=== PATIENT | male | born 1950 | race Caucasian/White ===

== ENCOUNTER → 2017-04-15 | Outpatient (CLI) | payer MEDICARE, BC | END | disposition home or self-care (01) | LOC: GMAB 10:33 | PROVIDERS: ATTEND Family Medicine | DX: Z12.5 Encounter for screening for malignant neoplasm of prostate (principal); I10 Essential (primary) hypertension | CPT/HCPCS: 84443; G0103 ==

== ENCOUNTER → 2017-05-13 | Outpatient (CLI) | payer MEDICARE, BC ==
--- NOTE | 2017-05-14 14:23 | US ---
EXAM DESCRIPTION: Renal two-dimensional ultrasound. CLINICAL HISTORY: RENAL INSUFFICIENCY COMPARISON: None. TECHNIQUE: Transcutaneous scanning: Two-dimensional and Doppler modes. FINDINGS: Right kidney measures 10.5 x 5.9 x 5.3 cm; mid-renal cortical thickness 1.9 cm. .echogenicity. No hydronephrosis No calcifications. Smooth contour of the kidney with no perinephric fluid. Proximal ureter not visualized. Left kidney measures 12.5 x 6.2 x 5.1 cm; mid-renal cortical thickness 1.6 cm. echogenicity. No hydronephrosis. No calcifications. Not contour of the kidney with no perinephric fluid. Proximal ureter not visualized. Urinary bladder not visualized. Abdominal aorta diameter not measured. IMPRESSION: Normal ultrasound of the bilateral kidneys. Consider Doppler evaluation of the bilateral renal arterial systems. Electronically signed by: Nato Burrell MD 05/14/2017 2:21 PM CDT Workstation: [id number]
== END | disposition home or self-care (01) ==
LOC: US 11:14
PROVIDERS: ATTEND Family Medicine
DX: R94.4 Abnormal results of kidney function studies (principal)

== ENCOUNTER → 2017-05-19 | Outpatient (CLI) | payer MEDICARE, BC | LOC: GMAB 09:09 | PROVIDERS: ATTEND Family Medicine | DX: N18.4 Chronic kidney disease, stage 4 (severe) (principal) ==

== ENCOUNTER 2017-08-10 10:14 | Emergency (ER) | payer MEDICARE, BC ==
[2017-08-10] MEDS ORDERED: TETRACAINE HCL 0.5% OPHTH SOL 1 DROP OPHTH ONE (10:15)
[2017-08-10 10:26] VITALS: TEMP 97.4
--- NOTE | 2017-08-10 10:31 | ED.PDOC ---
History of Present Illness - General Chief Complaint: Laceration Stated Complaint: fall Time Seen by Provider: 08/10/17 10:30 Source: patient, Vital Signs reviewed - History of Present Illness Initial Comments: Pedro Zapien 67 y/o male stated that he was loading bale of stratton then slipped and fell face down to the ground landing on a piece of wooden 2 x 2 laying on the floor sustaining laceration on right cheek and burning pain inside right eye.Denies LOC,remembers incident no neck pain,no double vision Timing/Duration: just prior to arrival Severity: moderate Location: face Improving Factors: nothing Worsening Factors: nothing Associated Symptoms: denies symptoms Allergies/Adverse Reactions: Allergies Atorvastatin [From Lipitor] Allergy (Verified 08/10/17 10:25) Penicillins Allergy (Verified 08/10/17 10:25) Home Medications: Ambulatory Orders Allopurinol [Zyloprim] 300 mg PO DAILY 10/11/14 Aspirin [Baby Aspirin] 81 mg PO DAILY 10/11/14 Clonazepam 2 mg PO DAILY 10/11/14 Duloxetine HCl [Cymbalta] 60 mg PO BID 10/11/14 Fenofibric Acid [Trilipix] 135 mg PO DAILY 10/11/14 Nabumetone 750 mg PO BID 10/11/14 Oxcarbazepine 600 mg PO BID 10/11/14 Pantoprazole Sodium 40 mg PO DAILY 10/11/14 Pregabalin [Lyrica] 150 mg PO BID 10/11/14 Quinapril HCl 40 mg PO DAILY 10/11/14 l-Methylfolate W/ Algae-Vitami [Metanx 3-90.314-2-35 mg] 1 cap PO DAILY Morphine Sulfate [Ms Contin] 60 mg PO BID 11/01/15 Naproxen 375 mg PO BID #10 tab 11/01/15 Azithromycin [Zithromax Z-Sung] 1 ea PO DAILY #1 pack 08/10/17 Review of Systems - Review of Systems Constitutional: States: no symptoms reported EENTM: States: no symptoms reported Respiratory: States: no symptoms reported Cardiology: States: no symptoms reported Genitourinary: States: no symptoms reported Musculoskeletal: States: no symptoms reported Skin: States: see HPI Neurological: States: no symptoms reported Past Medical History (General) - Patient Medical History Hx Stroke: Yes - 2001 Hx Cardiac Disorders: - hx scarlet fever Hx Congestive Heart Failure: No Hx Hypertension: Yes Hx Diabetes: No Hx Other PMH: Yes - neuropathy Surgical History: cholecystectomy, tonsillectomy, other - Vaccination History Hx Tetanus, Diphtheria Vaccination: No Hx Influenza Vaccination: No Hx Pneumococcal Vaccination: Yes - Social History Hx Tobacco Use: No Hx Chewing Tobacco Use: Yes Hx Alcohol Use: No Hx Substance Use: No Hx Substance Use Treatment: No Hx Depression: No Family Medical History - Family History Father Living Status: Age at (years of age): 89 Cause of : [place] Hx Family Hypertension: Yes Hx Family Cancer: Yes - skin Physical Exam - Physical Exam General Appearance: Alert, Comfortable, No apparent distress Eyes, Ears, Nose, Throat Exam: PERRL/EOMI, normal ENT inspection, TMs normal, other - right eye-no foreign body noted,conjuntival culde sac clear-negative fluorecein uptake Neck: non-tender, full range of motion, supple Cardiovascular/Chest: normal peripheral pulses, regular rate, rhythm, no murmur Respiratory: lungs clear, no respiratory distress Gastrointestinal/Abdominal: non tender, soft Back Exam: normal inspection Extremity: non-tender, no calf tenderness Neurologic: alert, normal mood/affect, oriented x 3 Skin Exam: warm/dry, normal color Skin Problem Location: face, other - laceration right cheek Progress - Progress Progress: 08/10/17 11:46 Vital Signs - 8 hr 08/10/17 08/10/17 10:14 11:40 Temperature 97.4 F L Pulse Rate [ 80 60 pulse ox] Respiratory 16 16 Rate Blood Pressure 120/78 104/69 [Right Arm] O2 Sat by Pulse 97 95 Oximetry Procedures - Laceration/Wound Repair Right Cheek Wound Length (cm): 4 - SQ layer Wound Explored: foreign body removed - small pieces of leaves Irrigated w/ Saline (cc's): 100 Betadine Prep?: No - hibiclens Volume Anesthetic (cc's): 10 Wound Repaired With: sutures Suture Size/Type: 5:0, nylon Layer Closure?: Yes Deep Layer Suture Size/Type: 5:0, vicryl rapide Number Deep Layer Sutures: 3 Sterile Dressing Applied?: Yes Departure - Departure Clinical Impression: Pain, eye, right Fall Qualifiers: Encounter type: initial encounter Qualified Code(s): W19.XXXA - Unspecified fall, initial encounter Laceration of cheek with foreign body Qualifiers: Encounter type: initial encounter Laterality: right Qualified Code(s): S01.421A - Laceration with foreign body of right cheek and temporomandibular area, initial encounter Time of Disposition: 11:51 Disposition: Discharge to Home or Self Care Condition: Good Departure Forms: ED Discharge - Pt. Copy, Patient Portal Self Enrollment Instructions: How to Care for a Laceration After Repair, DI for Laceration Repair -- Complex Suture Referrals: Josh Olivo MD [Primary Care Provider] - 1-2 Weeks Prescriptions: Azithromycin [Zithromax Z-Sung] 1 ea PO DAILY #1 pack Home Medications: Ambulatory Orders Allopurinol [Zyloprim] 300 mg PO DAILY 10/11/14 Aspirin [Baby Aspirin] 81 mg PO DAILY 10/11/14 Clonazepam 2 mg PO DAILY 10/11/14 Duloxetine HCl [Cymbalta] 60 mg PO BID 10/11/14 Fenofibric Acid [Trilipix] 135 mg PO DAILY 10/11/14 Nabumetone 750 mg PO BID 10/11/14 Oxcarbazepine 600 mg PO BID 10/11/14 Pantoprazole Sodium 40 mg PO DAILY 10/11/14 Pregabalin [Lyrica] 150 mg PO BID 10/11/14 Quinapril HCl 40 mg PO DAILY 10/11/14 l-Methylfolate W/ Algae-Vitami [Metanx 3-90.314-2-35 mg] 1 cap PO DAILY Morphine Sulfate [Ms Contin] 60 mg PO BID 11/01/15 Naproxen 375 mg PO BID #10 tab 11/01/15 Azithromycin [Zithromax Z-Sung] 1 ea PO DAILY #1 pack 08/10/17 Additional Instructions: REMOVAL OF SUTURES 08/16/2017 -[facility];Return to emergency room as needed
[2017-08-10] MEDS ORDERED: CHLORHEXIDINE GLUCONATE 4 % 15 ML UD TOP ONE (10:43)
[2017-08-10] MEDS ORDERED: LIDOCAINE 1% W/ EPINEPHRINE 20 ML VIAL INJ ONE (10:43)
[2017-08-10] MEDS ORDERED: NEOMYCIN-BACITRACIN-POLYMYXIN 0.9 GM UD TOP ONE (11:22)
[2017-08-10 11:42] VITALS: O2SAT 95
[2017-08-10] MEDS ORDERED: TETANUS,DIPHTHERIA,PERTUSSIS 1 EA SYG IM ONE (11:43)
[2017-08-10 12:07] VITALS: BP 94/62
== END 2017-08-10 12:07 | disposition home or self-care (01) ==
LOC: ER 10:14
DX: S01.421A Laceration with foreign body of right cheek and temporomandibular area, initial encounter (principal); I10 Essential (primary) hypertension; Z79.82 Long term (current) use of aspirin; Z79.899 Other long term (current) drug therapy; Z86.73 Personal history of transient ischemic attack (TIA), and cerebral infarction without residual deficits; Z23 Encounter for immunization; W19.XXXA Unspecified fall, initial encounter; Y92.9 Unspecified place or not applicable

== ENCOUNTER → 2017-10-15 | Outpatient (CLI) | payer MEDICARE, BC | END | disposition home or self-care (01) | LOC: GMAB 12:10 | PROVIDERS: ATTEND Family Medicine | DX: N18.4 Chronic kidney disease, stage 4 (severe) (principal) ==

== ENCOUNTER 2018-02-23 09:07 | Emergency (ER) | payer MEDICARE, BC ==
--- NOTE | 2018-02-23 09:09 | RAD ---
EXAM DESCRIPTION: Hand,Left 3 Views CLINICAL HISTORY: HAND PAIN COMPARISON: None Available. TECHNIQUE: AP, LATERAL, AND OBLIQUE FINDINGS: Three-view left hand shows no fracture or dislocation. There is no bone lesion. Degenerative narrowing of the DIP and PIP joints. Mild degenerative narrowing of the interphalangeal joint of thumb and first and second metacarpophalangeal joints. Advanced degenerative osteoarthrosis of the lateral carpus is seen especially first carpal metacarpal joint. There is no radiopaque foreign body. 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 Electronically signed by: Pj Palomaers MD 02/23/2018 9:08 AM CDT
--- NOTE | 2018-02-23 09:11 | RAD ---
EXAM DESCRIPTION: Hand,Right 3 Views CLINICAL HISTORY: HAND PAIN COMPARISON: None Available. TECHNIQUE: AP, LATERAL, AND OBLIQUE FINDINGS: Three-view right hand shows no fracture or dislocation. There is no bone lesion. Advanced osteoarthrosis of the lateral carpus is seen with mild narrowing of the radiocarpal joint. Degenerative narrowing of the first through third metacarpal phalangeal joints is seen. There is narrowing of the DIP joints and interphalangeal joint of the thumb. Findings are consistent with chronic osteoarthrosis. There is preservation of bony mineralization. IMPRESSION: Chronic osteoarthrosis of the right hand and wrist. Electronically signed by: Pj Palomares MD 02/23/2018 9:10 AM CDT
[2018-02-23 09:22] VITALS: TEMP 97.7
[2018-02-23] MEDS ORDERED: LIDOCAINE 1% W/ EPINEPHRINE 20 ML VIAL INJ ONE (09:26)
[2018-02-23] MEDS ORDERED: CHLORHEXIDINE GLUCONATE 4 % 15 ML UD TOP ONE (09:31)
--- NOTE | 2018-02-23 09:55 | ED.PDOC ---
History of Present Illness - General Chief Complaint: Laceration Stated Complaint: laceration Time Seen by Provider: 02/23/18 09:44 Source: patient, family Exam Limitations: no limitations Additional Information: PT SLIPPED AND FELL SUSTAINING LACERATION TO HEAD. NO LOC, NO NECK PAIN. 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: mild Improving Factors: nothing Worsening Factors: nothing Associated Symptoms: denies symptoms Allergies/Adverse Reactions: Allergies Atorvastatin [From Lipitor] Allergy (Verified 02/23/18 09:22) Penicillins Allergy (Verified 02/23/18 09:22) Home Medications: Ambulatory Orders Allopurinol [Zyloprim] 300 mg PO DAILY 10/11/14 Aspirin [Baby Aspirin] 81 mg PO DAILY 10/11/14 Clonazepam 2 mg PO DAILY 10/11/14 Duloxetine HCl [Cymbalta] 60 mg PO BID 10/11/14 Fenofibric Acid [Trilipix] 135 mg PO DAILY 10/11/14 Nabumetone 750 mg PO BID 10/11/14 Oxcarbazepine 600 mg PO BID 10/11/14 Pantoprazole Sodium 40 mg PO DAILY 10/11/14 Pregabalin [Lyrica] 150 mg PO BID 10/11/14 Quinapril HCl 40 mg PO DAILY 10/11/14 l-Methylfolate W/ Algae-Vitami [Metanx 3-90.314-2-35 mg] 1 cap PO DAILY Morphine Sulfate [Ms Contin] 60 mg PO BID 11/01/15 Naproxen 375 mg PO BID #10 tab 11/01/15 Azithromycin [Zithromax Z-Sung] 1 ea PO DAILY #1 pack 08/10/17 Review of Systems - Review of Systems Constitutional: Denies: chills, fever EENTM: States: other - LACERATION SCALP. Denies: double vision Respiratory: States: no symptoms reported Cardiology: States: no symptoms reported Gastrointestinal/Abdominal: Denies: nausea, vomiting Genitourinary: States: no symptoms reported Musculoskeletal: States: other - PAIN L SHOULDER. . Denies: back pain, neck pain Skin: States: other - LACERATION Neurological: Denies: numbness, tingling, weakness Endocrine: States: no symptoms reported Hematologic/Lymphatic: States: no symptoms reported Past Medical History (General) - Patient Medical History Hx Stroke: Yes - 2001 Hx Cardiac Disorders: - hx scarlet fever Hx Congestive Heart Failure: No Hx Hypertension: Yes Hx Diabetes: No Hx Gastroesophageal Reflux: Yes Surgical History: other - Vaccination History Hx Tetanus, Diphtheria Vaccination: No Hx Influenza Vaccination: No Hx Pneumococcal Vaccination: Yes - Social History Hx Tobacco Use: No Hx Chewing Tobacco Use: Yes Hx Alcohol Use: No Hx Substance Use: No Hx Substance Use Treatment: No Hx Depression: No Family Medical History - Family History Father Living Status: Age at (years of age): 89 Cause of : [place] Hx Family Hypertension: Yes Hx Family Cancer: Yes - skin Physical Exam - Physical Exam General Appearance: No apparent distress, Well Developed, Well Nourished Eye Exam: bilateral normal Ears, Nose, Throat: hearing grossly normal, other - LACERATION SCALP O/W NL. Neck: non-tender, full range of motion, supple, normal inspection Respiratory: lungs clear, normal breath sounds Cardiovascular/Chest: regular rate, rhythm, no murmur Gastrointestinal/Abdominal: non tender, soft, no organomegaly Back Exam: normal inspection, no CVA tenderness Extremity: normal range of motion, non-tender, normal inspection Neurologic: no motor/sensory deficits, normal mood/affect, other - NO TREMOR Skin Exam: normal color, warm/dry, other - LACERATION NOTED ABOVE. Lymphatic: no adenopathy Progress - Progress Progress: 02/23/18 11:06 FEELS WELL - EKG/XRAY/CT XRAY: SHOULDER: CHARLA Procedures - Laceration/Wound Repair Left Occipital Wound Length (cm): 3.0 Wound's Depth, Shape: linear Wound Explored: no foreign body removed Anesthesia: Lidocaine w/ Epi Wound Repaired With: beronica Layer Closure?: No Departure - Departure Clinical Impression: Parkinson disease Laceration of scalp Qualifiers: Encounter type: initial encounter Qualified Code(s): S01.01XA - Laceration without foreign body of scalp, initial encounter Time of Disposition: 11:08 Disposition: Discharge to Home or Self Care Condition: Good Departure Forms: ED Discharge - Pt. Copy, Patient Portal Self Enrollment Instructions: DI for Laceration Repair, DI for Laceration Repair -- [place] Referrals: Josh Olivo MD [Primary Care Provider] - 1-2 Weeks Home Medications: Ambulatory Orders Allopurinol [Zyloprim] 300 mg PO DAILY 10/11/14 Aspirin [Baby Aspirin] 81 mg PO DAILY 10/11/14 Clonazepam 2 mg PO DAILY 10/11/14 Duloxetine HCl [Cymbalta] 60 mg PO BID 10/11/14 Fenofibric Acid [Trilipix] 135 mg PO DAILY 10/11/14 Nabumetone 750 mg PO BID 10/11/14 Oxcarbazepine 600 mg PO BID 10/11/14 Pantoprazole Sodium 40 mg PO DAILY 10/11/14 Pregabalin [Lyrica] 150 mg PO BID 10/11/14 Quinapril HCl 40 mg PO DAILY 10/11/14 l-Methylfolate W/ Algae-Vitami [Metanx 3-90.314-2-35 mg] 1 cap PO DAILY Morphine Sulfate [Ms Contin] 60 mg PO BID 11/01/15 Naproxen 375 mg PO BID #10 tab 11/01/15 Azithromycin [Zithromax Z-Sugn] 1 ea PO DAILY #1 pack 08/10/17
--- NOTE | 2018-02-23 10:18 | RAD ---
EXAM DESCRIPTION: Shoulder,Left 2 or More Views CLINICAL HISTORY: FALL WITH PAIN COMPARISON: None. TECHNIQUE: 2 views left FINDINGS: I see no bone joint or soft tissue abnormality. IMPRESSION: Normal left shoulder for age. No evidence of fracture or dislocation is seen. Electronically signed by: Aquilino Coppola MD 02/23/2018 10:16 AM CDT
--- NOTE | 2018-02-23 10:48 | CT ---
EXAM DESCRIPTION: Cervical Spine CLINICAL HISTORY: FALL WITH PAIN COMPARISON: 01 November 2015 TECHNIQUE: Cervical CT is performed with thin-section axial imaging. MPRs are created and reviewed as well.This exam was performed according to our departmental dose-optimization program, which includes automated exposure control, adjustment of the mA and/or kV according to patient size and/or use of iterative reconstruction technique. FINDINGS: The cervical vertebral bodies are in good AP alignment. No fracturing is detected. No soft tissue swelling is observed. Loss of disc height is observed at the C5-6 and C6-7 levels unchanged from the previous exam. Left neural foraminal disease narrowing is observed at the C3-4 level as result of facet joint and uncovertebral joint arthritis. Bilateral neural foraminal narrowing is observed at the C4-5 level. Posterior disc osteophyte complex is seen at the C5-6 level and there is some left neural foraminal narrowing. Posterior disc osteophyte is also observed at the C6-7 level with bilateral neural foraminal narrowing. IMPRESSION: Degenerative changes are observed most pronounced at the C5-6 and C6-7 levels. No interval changes observed in the prior exam. No acute injury is detected. Electronically signed by: Aquilino Coppola MD 02/23/2018 10:46 AM CDT
--- NOTE | 2018-02-23 10:51 | CT ---
EXAM DESCRIPTION: Head CLINICAL HISTORY: FALL WITH HEAD LAC COMPARISON: None available TECHNIQUE: Non contrast cranial CT.This exam was performed according to our departmental dose-optimization program, which includes automated exposure control, adjustment of the mA and/or kV according to patient size and/or use of iterative reconstruction technique. FINDINGS: Ventricles and sulci are unremarkable. There is no hemorrhage or mass. There are no white matter abnormalities detected. The calvarium is unremarkable. The visualized paranasal sinuses and the mastoids are clear. Skin beronica are observed in the scalp laceration in the left frontal region IMPRESSION: No intra-axial abnormality is detected. Electronically signed by: Aquilino Coppola MD 02/23/2018 10:49 AM CDT
[2018-02-23 11:22] VITALS: BP 109/75; O2SAT 98
== END 2018-02-23 11:15 | disposition home or self-care (01) ==
LOC: ER 09:07
DX: S01.01XA Laceration without foreign body of scalp, initial encounter (principal); G20 Parkinson's disease; I10 Essential (primary) hypertension; F17.220 Nicotine dependence, chewing tobacco, uncomplicated; W19.XXXA Unspecified fall, initial encounter; Y92.9 Unspecified place or not applicable

== ENCOUNTER → 2018-03-13 | Outpatient (CLI) | payer MEDICARE, BC | LOC: LAB.O 09:13 | PROVIDERS: ATTEND Internal Medicine Nephrology | DX: N18.4 Chronic kidney disease, stage 4 (severe) (principal) ==

== ENCOUNTER 2018-03-18 05:38 | Day surgery (SDC) | payer MEDICARE, BC ==
[2018-03-18] MEDS ORDERED: LACTATED RINGERS 1,000 ML ONE (05:55)
[2018-03-18] MEDS ORDERED: SODIUM CHL 0.9% 100ML MINI-BAG 100 ML IVPB ONE (05:55)
[2018-03-18] MEDS ORDERED: ceFAZolin SODIUM 1 GM VIAL ONE ×2 (05:55→06:44)
[2018-03-18] MEDS ORDERED: MIDAZOLAM INJ 2 MG/2 ML VIAL ONE (06:28)
[2018-03-18] MEDS ORDERED: fentaNYL CITRATE INJ 50 MCG/ML AMP ONE (06:28)
[2018-03-18] MEDS ORDERED: BUPIVACAINE 0.25% W/EPI 50 ML VIAL INJ ONE (06:44)
[2018-03-18] MEDS ORDERED: LIDOCAINE 1% W/ EPINEPHRINE 20 ML VIAL INJ ONE (06:44)
[2018-03-18] MEDS ORDERED: VANCOMYCIN HCL INJ 1,000 MG VIAL IVPB ONE (06:44)
[2018-03-18] MEDS ORDERED: LIDOCAINE 1% 10 ML VIAL INJ ONE ×2 (06:48→10:00)
[2018-03-18] MEDS ORDERED: BUPIVACAINE 0.25% INJ 30 ML VIAL INJ ONE (06:48)
[2018-03-18] MEDS ORDERED: ACETAMINOPHEN IV 1000MG 100 ML ONE (07:46)
[2018-03-18] MEDS ORDERED: ePHEDrine SULF 50 MG/ML IV ONE (10:00)
[2018-03-18] MEDS ORDERED: DEXAMETHASONE INJ 10 MG/ML VIAL IV ONE (10:00)
[2018-03-18] MEDS ORDERED: raNITIdine HCL INJ 25 MG/ML VIAL IV ONE (10:00)
[2018-03-18] MEDS ORDERED: PROPOFOL 200 MG/20 ML VIAL IV ONE (10:00)
[2018-03-18] MEDS ORDERED: GLYCOPYRROLATE 0.2 MG/ML VIAL IV ONE (10:00)
[2018-03-18] MEDS ORDERED: METOCLOPRAMIDE HCL INJ 10 MG/2 ML VIAL IV ONE (10:00)
[2018-03-18 10:26] VITALS: O2SAT 98
[2018-03-18 11:13] VITALS: BP 120/76; TEMP 97.3
--- NOTE | 2018-03-18 11:21 | OP ---
DATE OF PROCEDURE: 03/18/18 PREOPERATIVE DIAGNOSIS: 1. Carpal tunnel syndrome. 2. Cubital tunnel syndrome. POSTOPERATIVE DIAGNOSIS: 1. Carpal tunnel syndrome. 2. Cubital tunnel syndrome. PROCEDURE: 1. Carpal tunnel release. 2. Ulnar nerve transposition. SURGEON: Ariel Rivera MD. SURFACE SUPERVISOR: Nato Kenney CST, SA-C. ANESTHESIA: General anesthesia. COMPLICATIONS: None. FINDINGS: 1. Thickening of the transverse carpal ligament with narrowing of the median nerve. 2. Narrowing of the ulnar nerve and subluxation. INDICATION: Mr. Zapien has a long history of pain, numbness and an EMG consistent with both cubital and carpal tunnel syndrome. He had pretty advanced symptoms and findings on physical examination. Because of the advanced nature, we had discussed operative versus nonoperative intervention. After discussing the risks, benefits and alternatives to that, the patient has given informed consent. PROCEDURE: The patient was brought to the Operating Room and placed in the supine position. General anesthesia was administered and the patient's arm was sterilely prepped and draped. An incision was made directly carpal tunnel. Dissection was carried down to the transverse carpal ligament. The transverse carpal ligament was sharply incised. A Hershey elevator was passed both proximally and distally to ensure complete release. The wound was thoroughly irrigated and the wound was closed with Nylon suture. The wound was wrapped and attention was then focused on the elbow. An incision was made midway between the medial epicondyle and the olecranon. Dissection was carried down to the cubital tunnel. The ulnar nerve was identified proximally. A vessel loop was passed around the nerve and blunt dissection was used to free the nerve from the cubital tunnel. Subcutaneous tissues were elevated medially and the nerve was transposed. The wound was thoroughly irrigated and the subcutaneous tissues were then sewn to the periosteum on the medial epicondyle taking precaution to ensure that the nerve was not entrapped. The rest of the wound was closed with a combination of Monocryl and Nylon. Sterile dressings were placed. The patient was awoken from anesthesia and taken to Recovery. POSTOPERATIVE INSTRUCTIONS: The patient will be in a sling and will followup with us in two days. He has been instructed to do range of motion of the digits. #[id number] [facility]
== END 2018-03-18 11:00 | disposition home or self-care (01) ==
LOC: AMB 05:38
PROVIDERS: ATTEND Orthopaedic Surgery
DX: G56.21 Lesion of ulnar nerve, right upper limb (principal); G56.01 Carpal tunnel syndrome, right upper limb; I10 Essential (primary) hypertension; I25.10 Atherosclerotic heart disease of native coronary artery without angina pectoris; K21.9 Gastro-esophageal reflux disease without esophagitis; F17.220 Nicotine dependence, chewing tobacco, uncomplicated; Z88.0 Allergy status to penicillin; Z88.8 Allergy status to other drugs, medicaments and biological substances; Z79.82 Long term (current) use of aspirin; Z79.899 Other long term (current) drug therapy
CPT/HCPCS: 01810; 64718; 64721; 87070; J0690; J1100; J2250; J2765; J2780; J3010; J3370; J3490; J7050; J7120

== ENCOUNTER 2018-06-26 09:02 | Emergency (ER) | payer MEDICARE, BC ==
[2018-06-26 09:21] VITALS: TEMP 96.3
--- NOTE | 2018-06-26 09:38 | RAD ---
EXAM DESCRIPTION: Shoulder,Left 2 or More Views CLINICAL HISTORY: pain after falling COMPARISON: February 23, 2018 IMPRESSION: 2 views of the left shoulder show no evidence of acute fracture, focal bone destruction, or joint dislocation. Mild osteoarthritic changes of the left acromioclavicular joint are again seen. Electronically signed by: Carlos Amezcua MD 06/26/2018 9:37 AM CDT
--- NOTE | 2018-06-26 09:47 | ED.PDOC ---
History of Present Illness - General Chief Complaint: Upper Extremity Injury Stated Complaint: left shoulder pain Time Seen by Provider: 06/26/18 09:43 Source: patient Exam Limitations: no limitations - History of Present Illness Initial Comments: Pedro Zapien 68 y/o male stated that he reached for the his dog leash then dog ran away got pulled fell to the ground and landing on his left shoulder.No neck /head injury.but with dull pain raising up shoulder.No numbness or weakness. Occurred: this morning Pain - Upper Extremity: moderate: Shoulder, left Method of Injury: fell Improving Factors: rest Worsening Factors: movement Allergies/Adverse Reactions: Allergies Atorvastatin [From Lipitor] Allergy (Verified 02/23/18 09:22) Penicillins Allergy (Verified 02/23/18 09:22) Home Medications: Ambulatory Orders Fenofibric Acid [Trilipix] 135 mg PO DAILY 10/11/14 RX: Allopurinol [Zyloprim] 300 mg PO DAILY 10/11/14 RX: Clonazepam 2 mg PO DAILY 10/11/14 RX: Oxcarbazepine 600 mg PO BID 10/11/14 RX: Quinapril HCl 40 mg PO DAILY 10/11/14 Morphine Sulfate [Ms Contin] 60 mg PO BEDTIME 11/01/15 Carbidopa-Levodopa [Carbidopa/Levodopa ER] 1 tab PO BID 06/26/18 HYDROcodone 10MG/APAP 325MG [Cable 10/325] 1 tab PO BID 06/26/18 RX: Duloxetine HCl 60 mg PO BID 06/26/18 RX: Nabumetone 750 mg PO BID 06/26/18 Ranitidine HCl [Zantac] 300 mg PO DAILY 06/26/18 Topiramate [Topamax] 200 mg PO DAILY 06/26/18 Review of Systems - Review of Systems Constitutional: States: no symptoms reported EENTM: States: blurred vision - old from multiple surgery when he was young Respiratory: States: no symptoms reported Cardiology: States: no symptoms reported Gastrointestinal/Abdominal: States: no symptoms reported Genitourinary: States: no symptoms reported Musculoskeletal: States: see HPI Skin: States: no symptoms reported Past Medical History (General) - Patient Medical History Hx Stroke: No Hx Cardiac Disorders: - hx scarlet fever Hx Congestive Heart Failure: No Hx Hypertension: Yes Hx Diabetes: No Hx Gastroesophageal Reflux: Yes Hx MRSA: No Hx Other PMH: Yes - Parkinsons Surgical History: other - knee ,elbow,hernia repair - Vaccination History Hx Tetanus, Diphtheria Vaccination: No Hx Influenza Vaccination: No Hx Pneumococcal Vaccination: Yes - Social History Hx Tobacco Use: Yes Hx Chewing Tobacco Use: Yes Hx Alcohol Use: No Hx Substance Use: No Hx Substance Use Treatment: No Hx Depression: No Family Medical History - Family History Father Living Status: Age at (years of age): 89 Cause of : [place] Hx Family Hypertension: Yes Hx Family Cancer: Yes - skin Physical Exam - Physical Exam General Appearance: Alert, Comfortable, No apparent distress Eyes, Ears, Nose, Throat Exam: normal ENT inspection, other - left eye with blurry vision-chronic Neck: non-tender, full range of motion, supple Cardiovascular/Respiratory: regular rate, rhythm, normal peripheral pulses, no JVD Abdominal Exam: non-tender, no organomegaly Back Exam: normal inspection, no CVA tenderness, no vertebral tenderness Shoulder Exam: normal inspection, no evidence of injury, bone tenderness, limited ROM - painful on extension/flexion Elbow/Forearm Exam: normal inspection, non-tender, no evidence of injury Wrist Exam: normal inspection, non-tender, no evidence of injury Hand Exam: normal inspection, non-tender, no evidence of injury, normal ROM Progress - Progress Progress: 06/26/18 09:50 Vital Signs 06/26/18 09:17 Temperature 96.3 F L Pulse Rate [ 75 Right Brachial] Respiratory 20 Rate Blood Pressure 121/73 [Right Arm] O2 Sat by Pulse 97 Oximetry 06/26/18 10:16 Explained to patient shoulder x -ray result showing no fracture but the test does not show if there is muscle or ligament tear that he needs MRI to follow up with primary MD - EKG/XRAY/CT XRAY: left shoulder-no fracture Departure - Departure Clinical Impression: Strain of left shoulder Qualifiers: Encounter type: initial encounter Qualified Code(s): S46.912A - Strain of unspecified muscle, fascia and tendon at shoulder and upper arm level, left arm , initial encounter Fall Qualifiers: Encounter type: initial encounter Qualified Code(s): W19.XXXA - Unspecified fall, initial encounter Time of Disposition: 10:10 Disposition: Discharge to Home or Self Care Condition: Fair Departure Forms: ED Discharge - Pt. Copy, Patient Portal Self Enrollment Instructions: Shoulder Sprain, Muscle Strain, Shoulder Sprain (DC) Referrals: GEORGE CERVANTES MD [Primary Care Provider] - 1-2 Weeks Home Medications: Ambulatory Orders Fenofibric Acid [Trilipix] 135 mg PO DAILY 10/11/14 RX: Allopurinol [Zyloprim] 300 mg PO DAILY 10/11/14 RX: Clonazepam 2 mg PO DAILY 10/11/14 RX: Oxcarbazepine 600 mg PO BID 10/11/14 RX: Quinapril HCl 40 mg PO DAILY 10/11/14 Morphine Sulfate [Ms Contin] 60 mg PO BEDTIME 11/01/15 Carbidopa-Levodopa [Carbidopa/Levodopa ER] 1 tab PO BID 06/26/18 HYDROcodone 10MG/APAP 325MG [Cable 10/325] 1 tab PO BID 06/26/18 RX: Duloxetine HCl 60 mg PO BID 06/26/18 RX: Nabumetone 750 mg PO BID 06/26/18 Ranitidine HCl [Zantac] 300 mg PO DAILY 06/26/18 Topiramate [Topamax] 200 mg PO DAILY 06/26/18 Additional Instructions: Follow up with primary MD 30 June 2018 for possible referral to orthopedist.Continue with all home meds and pain medications
[2018-06-26 10:38] VITALS: BP 110/79; O2SAT 95
== END 2018-06-26 10:38 | disposition home or self-care (01) ==
LOC: ER 09:02
DX: S46.912A Strain of unspecified muscle, fascia and tendon at shoulder and upper arm level, left arm, initial encounter (principal); I10 Essential (primary) hypertension; K21.9 Gastro-esophageal reflux disease without esophagitis; G20 Parkinson's disease; Z87.891 Personal history of nicotine dependence; Z79.899 Other long term (current) drug therapy; Z88.8 Allergy status to other drugs, medicaments and biological substances; Z88.0 Allergy status to penicillin; Y92.9 Unspecified place or not applicable; W18.39XA Other fall on same level, initial encounter

== ENCOUNTER 2019-02-27 13:04 | Emergency (ER) | payer MEDICARE, BC ==
--- NOTE | 2019-02-27 13:30 | ED.PDOC ---
History of Present Illness - General Chief Complaint: Back Pain or Injury Stated Complaint: Low back pain Time Seen by Provider: 02/27/19 13:30 Source: patient Exam Limitations: no limitations - History of Present Illness Initial Comments: Pedro Zapien 69 y/o male stated that he and his were pulling a rivas mattress on the their stairs going up he was holding the mattress at the bottom and lost lacquer sprayer then mattress slipped down as well himself rolling down stair well landing on his back as well as hitting the wooden wall side of head.No LOC;he was helped by and crawled to his recliner since he was unable to get up due to sharp pain on lower back non radiating ,hips,back of his neck and left side of head and left chest.EMS was called and was sitting on his recliner on their arrival.He was awake,in pain,remembers incident mostly referring to his back. Occurred: just prior to arrival Severity: moderate Pain Location: head, neck, back Method of Injury: other - see hpi Improving Factors: rest Worsening Factors: movement Loss of Consciousness: no loss of consciousness Associated Symptoms (Fall): other - see hpi Allergies/Adverse Reactions: Allergies Atorvastatin [From Lipitor] Allergy (Verified 02/23/18 09:22) Penicillins Allergy (Verified 02/23/18 09:22) Home Medications: Ambulatory Orders Allopurinol [Zyloprim] 300 mg PO DAILY 10/11/14 Clonazepam 2 mg PO DAILY 10/11/14 Fenofibric Acid [Trilipix] 135 mg PO DAILY 10/11/14 Oxcarbazepine 600 mg PO BID 10/11/14 Quinapril HCl 40 mg PO DAILY 10/11/14 Morphine Sulfate [Ms Contin] 60 mg PO BID 11/01/15 Carbidopa-Levodopa [Carbidopa/Levodopa ER] 1 tab PO BID 06/26/18 Duloxetine HCl 60 mg PO BID 06/26/18 Nabumetone 750 mg PO BID 06/26/18 Topiramate [Topamax] 200 mg PO DAILY 06/26/18 Allopurinol 300 mg PO DAILY 02/27/19 HYDROcodone 7.5MG/APAP 325MG [[place] 7.5/325] 1 ea PO Q4HR PRN 02/27/19 Pantoprazole Sodium 40 mg PO DAILY 02/27/19 Pravastatin Sodium 10 mg PO BEDTIME 02/27/19 Review of Systems - Review of Systems Constitutional: States: no symptoms reported EENTM: States: no symptoms reported Respiratory: States: no symptoms reported Cardiology: States: no symptoms reported Gastrointestinal/Abdominal: States: no symptoms reported Genitourinary: States: no symptoms reported Musculoskeletal: States: see HPI Skin: States: no symptoms reported Neurological: States: no symptoms reported All other Systems: Reviewed and Negative, No Change from Baseline Past Medical History (General) - Patient Medical History Hx Stroke: Yes - 20 years ago Hx Cardiac Disorders: - hx scarlet fever Hx Congestive Heart Failure: No Hx Hypertension: Yes Hx Diabetes: No Hx Gastroesophageal Reflux: Yes Hx MRSA: No Hx Other PMH: Yes - Parkinsons disease Surgical History: other - knee,hernia repair,foot,rt.CTS,elbow - Vaccination History Hx Tetanus, Diphtheria Vaccination: No Hx Influenza Vaccination: No Hx Pneumococcal Vaccination: Yes - Social History Hx Tobacco Use: Yes Hx Chewing Tobacco Use: Yes Hx Alcohol Use: No Hx Substance Use: No Hx Substance Use Treatment: No Hx Depression: No Family Medical History - Family History Father Living Status: Age at (years of age): 89 Cause of : DC Hx Family Hypertension: Yes Hx Family Cancer: Yes - skin Physical Exam - Physical Exam General Appearance: Alert, No apparent distress, Other - in pain when moving on his back Head Injury: no evidence of injury Eye Exam: right normal, left other - blurry vision-old eye injury in his 20's ENT Exam: hearing grossly normal, no evidence of ENT injury, no dental injury Neck Exam: normal alignment, normal inspection, limited range of motion - slightly painful, paraspinous muscle tender Cardiovascular/Respiratory: regular rate, rhythm, no M/R/G, normal peripheral pulses, no JVD, normal breath sounds Gastrointestinal/Abdominal: non tender, soft, no organomegaly Back Exam: muscle spasm, vertebral tenderness - lumbar Extremity Exam: no evidence of injury, normal range of motion, non-tender Neurologic: alert, oriented x 3 Skin Exam: normal color, warm/dry, other - skin abrasion left elbow - [place] Coma Score Best Eye Response ([place]): (4) open spontaneously Best Verbal Response ([place]): (5) oriented Best Motor Response ([place]): (6) obeys commands [place] Total: 15 Progress - Progress Progress: 02/27/19 14:00 Vital Signs - 8 hr 02/27/19 13:04 Temperature 98.8 F Pulse Rate [ 66 Left Radial] Respiratory 20 Rate Blood Pressure 122/76 [Right Arm] O2 Sat by Pulse 95 Oximetry 02/27/19 15:[address] results with the patient with findings of rib fracture left side and L4 lumbar spine fracture recommended admission but declined has lumbar support ,walker and still taking morphine for pain;also going to [place] in am to be with his grandchildren - EKG/XRAY/CT CT Ordered: Yes - head/c-spine -no acute abnormalities CT Interpretation Call Back: Yes - chest-fracture left rib 4 and 6 no displaced;subtle fracture rib 5 & 7 w/pe Departure - Departure Clinical Impression: Neck pain on left side Fall down stairs Qualifiers: Encounter type: initial encounter Qualified Code(s): W10.8XXA - Fall (on) (from) other stairs and steps, initial encounter Fracture of lumbar spine without cord injury Qualifiers: Encounter type: initial encounter Fracture type: closed Qualified Code(s): S32 .009A - Unspecified fracture of unspecified lumbar vertebra, initial encounter for closed fracture Fracture, ribs Qualifiers: Encounter type: initial encounter Rib fracture type: multiple ribs Fracture type: closed Laterality: left Qualified Code(s): S22.42XA - Multiple fractures of ribs, left side, initial encounter for closed fracture Head ache Qualifiers: Headache type: unspecified Headache chronicity pattern: unspecified pattern Intractability: not intractable Qualified Code(s): R51 - Headache Time of Disposition: 15:26 Disposition: Discharge to Home or Self Care Condition: Fair Departure Forms: ED Discharge - Pt. Copy, Patient Portal Self Enrollment Instructions: Vertebral Compression Fracture (DC), Rib Fracture (DC) Activity: ambulate only with walker Referrals: GEORGE CERVANTES MD [Primary Care Provider] - 1-2 Weeks Home Medications: Ambulatory Orders Allopurinol [Zyloprim] 300 mg PO DAILY 10/11/14 Clonazepam 2 mg PO DAILY 10/11/14 Fenofibric Acid [Trilipix] 135 mg PO DAILY 10/11/14 Oxcarbazepine 600 mg PO BID 10/11/14 Quinapril HCl 40 mg PO DAILY 10/11/14 Morphine Sulfate [Ms Contin] 60 mg PO BID 11/01/15 Carbidopa-Levodopa [Carbidopa/Levodopa ER] 1 tab PO BID 06/26/18 Duloxetine HCl 60 mg PO BID 06/26/18 Nabumetone 750 mg PO BID 06/26/18 Topiramate [Topamax] 200 mg PO DAILY 06/26/18 Allopurinol 300 mg PO DAILY 02/27/19 HYDROcodone 7.5MG/APAP 325MG [[place] 7.5/325] 1 ea PO Q4HR PRN 02/27/19 Pantoprazole Sodium 40 mg PO DAILY 02/27/19 Pravastatin Sodium 10 mg PO BEDTIME 02/27/19 Additional Instructions: Ice pack to affected area 20 minutes 4 x a day during waking hours only for 5 days;Continue with all home medications ;wear back brace in AM off at bedtime for 4 weeks;Follow up with primary Md in 2 weeks for recheck as needed;Return to ER as needed
[2019-02-27] MEDS: MORPHINE SULFATE INJ 10 MG/ML VIAL IM ONE (14:19)
[2019-02-27] MEDS: KETOROLAC TROMETHAMINE INJ 30 MG/ML VIAL IM ONE (14:19)
[2019-02-27] MEDS: fentaNYL CITRATE INJ 50 MCG/ML AMP IV ONE (14:19)
--- NOTE | 2019-02-27 14:41 | CT ---
EXAM DESCRIPTION: CT Lumbar Spine CLINICAL HISTORY: 69 years Male fall stairs COMPARISON: None TECHNIQUE: Noncontrast axial scans of the lumbar spine were obtained. Sagittal and coronal reformatted images were performed. This exam was performed according to our departmental dose-optimization program, which includes automated exposure control, adjustment of the mA and/or kV according to patient size and/or use of iterative reconstruction technique. FINDINGS: There is a fracture of the L4 vertebral body, primarily involving the anterior and lateral cortical margins, with probable minimal upper endplate depression. Negligible if any paravertebral hematoma. No significant bony retropulsion is identified. No other acute fracture or dislocation involving the lumbar spine is identified. There is no evidence of active bone destruction. Anterolateral vertebral spurring is noted at various levels. There are hypertrophic bony changes in posterior elements and facet arthropathy at the lower 3 levels. Neural foramina are most narrowed at L5-S1, where there is also interspace narrowing and vacuum disc phenomenon. Probable disc bulging and spinal stenosis at L4-5. There are hypertrophic bony changes at the anterior SI joint margins, especially on the left, with bony bridging. Aorto iliac calcifications are noted. IMPRESSION: 1. L4 vertebral body fracture. 2. Degenerative changes, greatest at L5-S1 and L4-5. Please see comments above. Electronically signed by: Jameson Owen MD 02/27/2019 2:39 PM CDT
[2019-02-27] MEDS ORDERED: NEOMYCIN-BACITRACIN-POLYMYXIN 0.9 GM UD TOP ONE (15:00)
--- NOTE | 2019-02-27 15:00 | CT ---
EXAM DESCRIPTION: CT Cervical Spine CLINICAL HISTORY: 69 years Male fall stairs COMPARISON: February 23, 2018. TECHNIQUE: Noncontrast axial scans of the cervical spine were obtained. Sagittal and coronal reformatted images were performed. This exam was performed according to our departmental dose-optimization program, which includes automated exposure control, adjustment of the mA and/or kV according to patient size and/or use of iterative reconstruction technique. FINDINGS: There is no evidence of acute cervical spine fracture or dislocation or destructive bony lesion. Degenerative changes are present, especially at the C5-6 and C6-7 levels, where there is slight to moderate disc space narrowing and slight anterior and posterior vertebral spurring. Degenerative change is also seen at the anterior atlantoaxial joint. Neural foraminal narrowing is noted, especially at C3-4 on the left and C4-5 and C6-7 bilaterally, as well as to a lesser degree at C5-6 on the left, due to hypertrophic bony changes. There is slight mid cervical facet arthropathy, mainly on the left. There is slight narrowing of the AP diameter of the bony spinal canal at C5-6 and C6-7, but the bony cervical spinal canal appears otherwise reasonably patent. The above findings do not appear significantly changed compared to the previous study. There is no evidence of significant prevertebral soft tissue swelling. IMPRESSION: No evidence of acute osseous injury involving the cervical spine. Degenerative changes, essentially stable since last year. Electronically signed by: Jameson Owen MD 02/27/2019 2:58 PM CDT
[2019-02-27 15:06] VITALS: TEMP 98.5
[2019-02-27 15:32] VITALS: BP 119/70; O2SAT 94
--- NOTE | 2019-02-28 14:35 | CT ---
EXAM: CT Head Without Intravenous Contrast CLINICAL HISTORY: 69 years old and is Male; fall stairs TECHNIQUE: Axial computed tomography images of the head/brain without intravenous contrast. Sagittal and coronal reformatted images were created and reviewed. This CT exam was performed using one or more of the following dose reduction techniques: automated exposure control, adjustment of the mA and/or kV according to patient size, and/or use of iterative reconstruction technique. COMPARISON: No relevant prior studies available. FINDINGS: Limitations: None. Brain: There is age related cortical atrophy and periventricular white matter hypodensity most consistent with chronic small ischemic change. No acute infarct, hemorrhage or mass. Ventricles: Unremarkable. No ventriculomegaly. Bones/joints: Unremarkable. No acute fracture. Soft tissues: Unremarkable. Sinuses: Unremarkable as visualized. No acute sinusitis. Mastoid air cells: Unremarkable as visualized. No mastoid effusion. IMPRESSION: No acute findings. Electronically signed by: Elo Cruz MD 02/27/2019 2:23 PM CDT
--- NOTE | 2019-02-28 14:35 | CT ---
EXAM: CT Pelvis Without Intravenous Contrast CLINICAL HISTORY: 69 years old and is Male; fall stairs TECHNIQUE: Axial computed tomography images of the pelvis without intravenous contrast. Sagittal and coronal reformatted images were created and reviewed. This CT exam was performed using one or more of the following dose reduction techniques: automated exposure control, adjustment of the mA and/or kV according to patient size, and/or use of iterative reconstruction technique. COMPARISON: No relevant prior studies available. FINDINGS: Limitations: None. Bowel: Unremarkable. No obstruction. No mucosal thickening. Appendix: No findings to suggest acute appendicitis. Intraperitoneal space: Unremarkable. No free air. No significant fluid collection. Bladder: Unremarkable. No stones. Reproductive: The prostate is prominent. Bones/joints: There is a fracture of the inferior endplate of L4 seen on the most superior image. There is mild narrowing and marginal spurring of the acetabular joints. There is degenerative disease of the lower lumbar disks. No dislocation. Soft tissues: Unremarkable. Vasculature: Unremarkable. No lower abdominal aortic aneurysm. Lymph nodes: Unremarkable. No enlarged lymph nodes. IMPRESSION: The most superior image demonstrates a partially imaged fracture of the inferior endplate of L4. No other fracture noted. See separately dictated lumbar spine CT report. Electronically signed by: Elo Cruz MD 02/27/2019 2:48 PM CDT
--- NOTE | 2019-02-28 14:35 | CT ---
EXAM: CT Chest Without Intravenous Contrast CLINICAL HISTORY: 69 years old and is Male; rib pain increased with inspiration TECHNIQUE: Axial computed tomography images of the chest without intravenous contrast. Sagittal and coronal reformatted images were created and reviewed. This CT exam was performed using one or more of the following dose reduction techniques: automated exposure control, adjustment of the mA and/or kV according to patient size, and/or use of iterative reconstruction technique. COMPARISON: No relevant prior studies available. FINDINGS: Limitations: None. Lungs: There is dependent atelectasis. Approximate 2 mm granuloma in the left upper lobe. Pleural space: Unremarkable. No pneumothorax. No significant effusion. Heart: Unremarkable. No cardiomegaly. No significant pericardial effusion. Bones/joints: There are fractures of the right anterolateral fourth through seventh ribs. The fifth and seventh ribs demonstrate some periosteal reaction suggesting subacute nature. No dislocation. Soft tissues: Unremarkable. Vasculature: Unremarkable. No thoracic aortic aneurysm. Lymph nodes: Unremarkable. No enlarged lymph nodes. Liver: Fatty liver. IMPRESSION: There are fractures of the right anterolateral fourth through seventh ribs. The fifth and seventh ribs demonstrate some periosteal reaction suggesting subacute nature. Electronically signed by: Elo Cruz MD 02/27/2019 2:33 PM CDT
== END 2019-02-27 15:42 | disposition home or self-care (01) ==
LOC: ER 13:07
DX: S32.049A Unspecified fracture of fourth lumbar vertebra, initial encounter for closed fracture (principal); S22.42XA Multiple fractures of ribs, left side, initial encounter for closed fracture; R51 Headache; M54.2 Cervicalgia; S50.312A Abrasion of left elbow, initial encounter; G20 Parkinson's disease; I10 Essential (primary) hypertension; K21.9 Gastro-esophageal reflux disease without esophagitis; Z87.891 Personal history of nicotine dependence; Z86.73 Personal history of transient ischemic attack (TIA), and cerebral infarction without residual deficits; Z79.899 Other long term (current) drug therapy; Z88.8 Allergy status to other drugs, medicaments and biological substances; Z88.0 Allergy status to penicillin; W10.9XXA Fall (on) (from) unspecified stairs and steps, initial encounter; Y92.009 Unspecified place in unspecified non-institutional (private) residence as the place of occurrence of the external cause
CPT/HCPCS: 70450; 71250; 72125; 72131; 72192; J1885; J2270

== ENCOUNTER → 2019-05-26 | Outpatient (CLI) | payer MEDICARE, BC ==
--- NOTE | 2019-05-26 17:12 | MRI ---
EXAM DESCRIPTION: Lumbar Spine w/o Contrast : Magnetic Resonance Imaging. CLINICAL HISTORY: LUMBAR RADICULOPATHY COMPARISON: CT scan lumbar spine 12/17/2012. CT scan of the chest without contrast 02/27/2019. TECHNIQUE: Multiplanar, multiple standard sequences, non contrast MRI, lumbar spine. FINDINGS: The L5-S1 disc space is visualized on axial T2 series 501, image 8. The S1 vertebra is transitional and partially lumbarized. Incomplete articulation bilaterally of the S1 sacral ala with the bilateral iliac bones and the bilateral S2 sacral ala. Rudimentary S1-S2 disc no bulging. Rudimentary ribs and transverse processes are seen at L1. 12 customary appearing rib pairs seen on chest CT scan. This is confirmed with review of the prior CT scans. Right rudimentary rib at L1 with bilateral transverse processes also seen on the prior CT scans. L4 vertebra is significantly compressed almost 50% centrally with fracture lines extending anteriorly and posteriorly. Posterior vertebral body height is 3.1 cm compared to same height at L3. Anterior vertebral body height is 1.6 cm compared to 3.1 cm at L3. Retropulsion of the posterior cortex of the vertebral body 3 mm compared to L3. The anterior inferior vertebral body is protruding against the posterior wall of the aorta. Marrow edema in the anterior central and posterior superior aspect of the vertebral body. No marrow edema in the pedicles and no fracture lines. No marrow edema in the lamina. L4-L5: Disc desiccation with superior migration along with the inferior L4 endplate. Minimal anterior bulge. 2 mm grade 1 anterolisthesis. Posterior disc bulge is abutting the bilateral extremely hypertrophic arthritic facet joints with marked posterior ligament thickening impressing the thecal sac. Bilateral subarticular recess stenosis compressing the descending bilateral L5 nerve roots. AP canal diameter 4.5 mm. Mild bilateral foraminal narrowing more left than right. L3-L4: Desiccated disc with inferior disc settling into concave superior L4 endplate. 3 mm grade 1 anterolisthesis. Advanced bilateral hypertrophic facet arthrosis and flavum ligament thickening with AP canal diameter 6 mm. Mild left foraminal narrowing and moderate right foraminal narrowing with the disc abutting the exiting right L3 nerve root. L5-S1: Disc desiccation and moderate disc space loss more posterior. Anterior endplate reactive changes and minimal disc bulge containing calcification or air. Minimal posterior disc bulge. Moderate hypertrophic facet arthrosis bilaterally with flavum ligament thickening. AP canal diameter 11 mm and 9 mm transverse. Bilateral lateral endplate reactive changes with moderate to severe left foraminal narrowing and moderate right foraminal narrowing. L2-L3: Disc desiccation minimal with disc space maintained. Bilateral flavum ligament thickening and hypertrophic facet arthrosis with mild canal narrowing. Bilateral foramina are patent. L1-L2: Normal signal in the disc with disc space preserved. Minimal thickening of the posterior ligaments. Canal and foramina are patent. Conus terminates at this level. T12-L1: Normal signal in the disc with disc space preserved. Posterior elements unremarkable. Canal and foramina are patent. No significant scoliosis. Paravertebral soft tissues suggestive of minimal edema around the L4 vertebral body.. Otherwise normal marrow signal in the remaining vertebral bodies and the posterior elements. Vertebral bodies are not compressed at any level. IMPRESSION: 1. The S1 sacral segment is partially lumbarized with rudimentary S1-S2 disc. Rudimentary right rib on L1. Please compared to prior lumbar CT scan and most recent chest CT scan. 2. Compression fracture of the central and anterior L4 vertebral body, with fracture of the posterior cortex and retropulsion. No marrow edema in the bilateral pedicles or lamina or evidence of acute fracture. The compression fracture is interpreted to be stable. 3. Severe central canal stenosis L4-L5 with anterolisthesis. Posterior disc bulge, and severe hypertrophic facet arthrosis and ligament thickening. Mild bilateral foraminal narrowing. 4. Less severe central canal stenosis L3-L4 with grade 1 anterolisthesis. Also advanced bilateral hypertrophic facet arthrosis and posterior ligament thickening along with retropulsion of the superior L4 endplate. Moderate right foraminal narrowing. 5. Spondylosis anterior and laterally at L5-S1 with moderate to severe left foraminal narrowing and moderate right foraminal narrowing. Borderline central canal stenosis. Electronically signed by: Nato Burrell MD 05/26/2019 5:10 PM CDT
== END ==
LOC: MRI 10:00
PROVIDERS: ATTEND Neurological Surgery
DX: M47.26 Other spondylosis with radiculopathy, lumbar region (principal); S32.040A Wedge compression fracture of fourth lumbar vertebra, initial encounter for closed fracture; M51.16 Intervertebral disc disorders with radiculopathy, lumbar region; M48.062 Spinal stenosis, lumbar region with neurogenic claudication; M43.16 Spondylolisthesis, lumbar region

== ENCOUNTER → 2019-06-29 | Outpatient (CLI) | payer MEDICARE, BC ==
--- NOTE | 2019-06-29 11:38 | RAD ---
EXAM DESCRIPTION: Lumbar Spine 3 Views CLINICAL HISTORY: Lumbar fx COMPARISON: Lumbar spine CT 02/27/2019. TECHNIQUE: AP/lateral/coned-down lateral FINDINGS/IMPRESSION: Transitional lumbosacral anatomy with lumbarization of S1. Interval changes of the cement placement/vertebral plasty at the previously noted L4 anterior vertebral body compression fracture. The degree of anterior vertebral body height loss (approximately 50%) is similar compared to prior MRI dated 05/26/2019. Mild anterior cortical bulging also appears unchanged. No other lumbar displaced fracture. Multilevel lumbar spine spondylosis and facet degeneration. Electronically signed by: Ahsan Hartman DO 06/29/2019 11:36 AM CDT
== END ==
LOC: RAD 09:51
PROVIDERS: ATTEND Neurological Surgery
DX: S32.040D Wedge compression fracture of fourth lumbar vertebra, subsequent encounter for fracture with routine healing (principal); M47.896 Other spondylosis, lumbar region; Q76.49 Other congenital malformations of spine, not associated with scoliosis; Z12.5 Encounter for screening for malignant neoplasm of prostate; I10 Essential (primary) hypertension; E78.2 Mixed hyperlipidemia
CPT/HCPCS: 72100; 84443; 84550; G0103

== ENCOUNTER → 2019-07-30 | Outpatient (CLI) | payer MEDICARE, BC ==
--- NOTE | 2019-08-01 11:48 | CT ---
EXAM DESCRIPTION: Lumbar Spine: Computed Tomography. CLINICAL HISTORY: 69 years Male LUMBAR RADICULOPATHY COMPARISON: Lumbar spine radiographs June 2019. MRI lumbar spine May 2019. CT scan lumbar spine February 2019. TECHNIQUE: Spiral, axial 2.5 x 2.5 mm scans through the cervical spine without contrast. Coronal and sagittal 2.0 mm and axial bone algorithm 2.5 mm Reconstructions. Total Exam DLP: 821.3 mGy-cm. This exam was performed according to our departmental dose-optimization program which includes automated exposure control, adjustment of the mA and/or kV according to patient size and/or use of iterative reconstruction technique; to reduce radiation dose to as low as reasonably achievable (ALARA). FINDINGS: Based on previous studies, patient has 4 lumbar type vertebra. The transitional lumbar sacral vertebra is a lumbarized S1 segment. L1 is also transitional with rudimentary 13th ribs as seen on prior studies. Rudimentary S1-S2 disc space. Incomplete articulation of the sacral ala with the SI joints bilaterally and arthrosis in the bilateral visualized SI joints more on the left. Canal posterior to S1 and S1-S2 foramina are sacralized. L5-S1: The axial scan dose courses through the mid disc space on image 4/109. Moderate loss of disc space and diffuse degenerative gas formation in the disc space. Posterior disc remnant and spurs bulging 3 mm and encroaching on the thecal sac. Bilateral hypertrophic facet arthrosis and thickening of the ligaments. Narrowing of the transverse diameter of the canal. AP canal diameter 10 mm. Bilateral foraminal stenosis more right than left. Stable since the prior study. L4 vertebral compression fracture with a coronal component through the central body the anterior from the posterior vertebral body. There are also horizontal fragments standing to the anterior cortex. Vertebroplasty has been performed with a minimal amount of cement in the L3-L4 disc space. 4 mm retropulsion of the superior endplate. There is minimal depression of the superior endplate, with anterior cortical separation and fracture line, on the prior CT scan. 50% central compression of the vertebra on the prior MRI scan with marrow edema in the vertebral body but not in the pedicles. No fracture lines noted in the pedicles or lamina on the current study. L4-L5 disc space preserved except for posterior narrowing. Fracture of the anterior superior L4 endplate with no fusion. Anterolisthesis 1 mm. Bilateral hypertrophic facet arthrosis and thickening of the ligament. Posterior disc bulge 2 mm. Calcification in the posterior disc. AP canal diameter 7 mm. Bilateral moderate to severe foraminal narrowing abutting the bilateral L4 nerve roots. Bilateral subarticular recess stenosis with compromise of the L5 nerves. Progressed since the prior study. L3-L4: Anterolisthesis caused by superior L4 endplate retropulsion as previously described. Disc is expanding into the collapsed superior endplate. Posterior disc bulge 3.5 mm. Bilateral advanced hypertrophic facet arthrosis and thickening of the ligament. Hypertrophic bone from the left inferior L3 facet is impressing on the thecal sac and the right subarticular recess. Right paracentral 4.5 mm AP canal diameter. Possible compromise descending right L4 nerve. Progressed since the prior study. Moderate to severe right foraminal narrowing and moderate left foraminal narrowing. L2-L3: Disc space preserved. 1 mm retrolisthesis. Moderate hypertrophic facet arthrosis and flavum ligament thickening. AP canal diameter 12 mm. Mild to moderate canal narrowing. Minimal narrowing of the right subarticular recess. Stable since the prior study. L1-L2: Disc space preserved. No significant disc bulge. Minimal hypertrophic facets bilaterally. AP canal diameter normal. Bilateral foramina are patent. No change from the prior study. T12-L1: Disc space preserved with no significant posterior bulging. Posterior marginal spurs. Mild hypertrophy of the facets with anomalous appearance of the left facet which is almost in the coronal plane with the right facet less than 20 degrees from the sagittal plane. This anomaly also seen on the prior study. Canal and bilateral foramina are patent. Narrowing and spondylosis at T11-T12 with canal narrowing and severe bilateral foraminal narrowing or mild stenosis. Bilateral hypertrophic facet arthropathy. Stable since the prior study. No other compression deformity causing vertebral body or posterior element fractures. No scoliosis. IMPRESSION: 1. 4 lumbar type vertebra with transitional L1 having rudimentary 13th ribs, and lumbarized S1 segment with hypoplastic sacral ala and incomplete SI joints and rudimentary S1-S2 disc. Stable since the prior study. 2. Progressive compression and separation of fragments in the anterior and mid L4 vertebral body since the prior study. No fracture of the posterior elements. Moderate to severe central canal stenosis L4-L5. Bilateral subarticular recess stenosis with compromise of the L5 nerves. This has progressed since the prior study. 3. Multifactorial borderline mild central canal stenosis L5-S1. Moderate to severe spondylosis. Bilateral foraminal stenosis more right than left. Stable since the prior study. 4. Posterior disc osteophyte bulge at L3-L4. Hypertrophic bone/spur from the left inferior L3 articular facet impressing on the thecal sac and right subarticular recess with severe right paracentral canal stenosis and compromise of the right L4 nerve. This has progressed since the prior study. Moderate to severe right foraminal narrowing. Electronically signed by: Nato Burrell MD 08/01/2019 11:47 AM CDT
== END ==
LOC: CT 09:30
PROVIDERS: ATTEND Neurological Surgery
DX: M51.16 Intervertebral disc disorders with radiculopathy, lumbar region (principal); S32.000A Wedge compression fracture of unspecified lumbar vertebra, initial encounter for closed fracture; M25.78 Osteophyte, vertebrae; M48.062 Spinal stenosis, lumbar region with neurogenic claudication

== ENCOUNTER → 2019-10-15 | Outpatient (CLI) | payer MEDICARE, BC ==
--- NOTE | 2019-10-15 09:57 | RAD ---
EXAM DESCRIPTION: Lumbar Spine 3 Views CLINICAL HISTORY: LUMBAR RADICULOPATHY COMPARISON: 29 June 2019 TECHNIQUE: AP/lateral/coned-down lateral FINDINGS: The lumbar vertebral bodies are in good AP alignment. Pedicle screw instrumentation is seen bridging the L3 level. Pedicle screws are seen from L2 through L4. No hardware failure is detected. There is evidence of prior compression fracture and vertebral body augmentation at this level. Anterior osteophyte formation is seen at the L1-2 level. Loss of disc height and vacuum disc phenomena are observed at the L4-5 level. There is loss of disc height at the L5-S1 level. IMPRESSION: Pedicle screw bridging of the L3 level is observed with evidence for prior L3 vertebral body augmentation and compression fracture. Electronically signed by: Aquilino Coppola MD 10/15/2019 9:55 AM [facility]
== END ==
LOC: RAD 09:00
PROVIDERS: ATTEND Neurological Surgery
DX: M54.16 Radiculopathy, lumbar region (principal); Z98.890 Other specified postprocedural states; Z87.81 Personal history of (healed) traumatic fracture

== ENCOUNTER → 2019-11-09 | Outpatient (CLI) | payer MEDICARE, BC ==
--- NOTE | 2019-11-10 16:19 | CT ---
EXAM DESCRIPTION: Lumbar Spine: Computed Tomography. CLINICAL HISTORY: 69 years Male UNSPECIFIED FRACTURE OF UNSPEC LUMBAR VERTEBRA COMPARISON: Noncontrast CT scan of the lumbar spine [address] scan of the chest, thoracic spine, pelvis, and lumbar spine February 2019. TECHNIQUE: Spiral, axial 2.5 x 2.5 mm scans through the lumbarspine without contrast. Axial scans with soft tissue and bone algorithms. Coronal and sagittal 2.0 mm Reconstructions. Total Exam DLP: 601.98 mGy-cm. This exam was performed according to our departmental dose-optimization program which includes automated exposure control, adjustment of the mA and/or kV according to patient size and/or use of iterative reconstruction technique; to reduce radiation dose to as low as reasonably achievable (ALARA). FINDINGS: For the purposes of this report, the previously compressed- type, vertebral body fracture will be designated at L4. This convention is in agreement with previous CT scan lumbar spine in July [address] scan of the pelvis and lumbar spine February 2019. The patient has 4 lumbar type vertebra, L2-L5. L1 vertebra is transitional with rudimentary 13th ribs bilaterally. S1 segment is transitional and lumbarized with rudimentary S1-S2 disc space. S1-S2: Physiologic narrowing of the canal. Bilateral foramina no stenosis. Rudimentary facet joint right. Bilateral arthrosis in the superior SI joints more to the left than right. L5-S1: Disc space loss and desiccated disc gas formation. Moderate disc space loss. Trace retrolisthesis with disc remnant bulge into the canal abutting the thecal sac. AP canal diameter 13 mm. Degenerative hypertrophy of the bilateral facet joints. Bilateral foramina are stenotic with bilateral L5 transpedicular screws coursing above the superior foramina bilaterally, more on the left. Again noted is compression fracture at L4. Posterior vertebral body height 3.2 cm, similar to the prior study. Anterior vertebral body height 1.1 cm, similar to the prior study. Augmentation cement again noted in the superior vertebral body bony substance and in the inferior L3-L4 disc space with no significant migration. Retropulsion of the superior endplate 6.5 mm on the current study and 5.2 mm on the prior study. Fracture line anterior to the mid vertebra in the coronal plane and also anterior to the augmentation cement shows no significant change. Bilateral posterior transpedicular screws at L5 and L3 with unilateral connecting rods. The right side L3 screw is abutting the superior L3 endplate. There is also bony radiolucency and sclerosis in the vertebral body abutting this screw suggesting loosening. Not seen in the bone around the contralateral right screw by comparison. No other bony complications. Hardware is intact. No large paravertebral soft tissue mass or posterior hardware or soft tissue mass. L4-L5: Posterior disc remnant bulge. Bone densities abutting the posterior thecal sac in the midline and the left of midline. Moderate bilateral degenerative hypertrophy of the facet joints encroaching on the thecal sac and the bilateral subarticular recesses. AP canal diameter 6.8 mm, no significant change from the prior study. Mild to moderate right foraminal narrowing and moderate to severe left foraminal narrowing stable since the prior study. L3-L4: Anterolisthesis secondary to retropulsion as previously described. Borderline right foraminal stenosis and moderate to severe left foraminal narrowing. Disc bulging into both foramina. AP canal diameter 6 mm. Marked hypertrophic degenerative changes in the bilateral facets more right than left impressing on the thecal sac and mild bilateral subarticular recess narrowing. No change from the prior study. L2-L3: Anterior and posterior disc bulging and disc space narrowing posterior. Anterior endplate ridging. Bilateral moderate hypertrophic facet joints and ligaments. Mild canal narrowing. Bilateral mild to moderate foraminal narrowing. L1-L2: Minimal posterior disc bulge and minimal anterior bulge. Bilateral degenerative hypertrophy of the facets. No significant canal narrowing. Bilateral mild foraminal narrowing. IMPRESSION: 1. Bilateral transpedicular screws have been introduced at L3 and L5 posteriorly along with unilateral connecting rods. Hardware is intact. Loosening of the left L3 pedicle screw in the vertebral body. Positioning of the left L5 pedicle screw is narrowing the superior left neural foramen at L5-S1. Bilateral foraminal stenosis, also seen on the prior study. 2. Stable compression type vertebral body fracture at L4 with retropulsion of the superior L3 endplate stable. Moderate to severe central canal stenosis at L3-L4 and L4-L5 with no significant change since the prior study. Also bilateral subarticular recess narrowing at these levels. 3. See findings for details about other levels. Electronically signed by: Nato Burrell MD 11/10/2019 4:18 PM [facility] [[email or web address]]
== END ==
LOC: CT 15:00
PROVIDERS: ATTEND Neurological Surgery
DX: M48.56XA Collapsed vertebra, not elsewhere classified, lumbar region, initial encounter for fracture (principal); M48.061 Spinal stenosis, lumbar region without neurogenic claudication; M46.98 Unspecified inflammatory spondylopathy, sacral and sacrococcygeal region; T84.296A Other mechanical complication of internal fixation device of vertebrae, initial encounter

== ENCOUNTER → 2019-12-16 | Outpatient (CLI) | payer MEDICARE, BC ==
--- NOTE | 2019-12-17 09:53 | RAD ---
EXAM DESCRIPTION: Lumbar Spine 3 Views CLINICAL HISTORY: 69 years Male, LUMBAR RADICULOPATHY COMPARISON: October 15, 2019 FINDINGS: 3 views of the lumbar spine show an old L3 compression fracture with augmentation at the same level, stable. Bilateral pedicle screws at L2 and L4 with posterior fixation rods, also unchanged from the previous exam. No new vertebral body fracture or subluxation. Degenerative disc disease at L4-5, stable, with less advanced degenerative changes elsewhere in the lumbar spine. Mild degenerative changes in the sacroiliac joints. Large amount of stool and gas scattered throughout visualized portions of the colon. IMPRESSION: Moderate multilevel degenerative changes including degenerative disc disease at L4-5, all stable from October,. Old L3 compression fracture with augmentation at the same level, also stable. No new compression fracture. Postoperative changes as detailed above without apparent hardware complication, also stable. Large amount of colonic stool and gas. Electronically signed by: Raul Topete MD 12/17/2019 9:52 AM [facility]
== END ==
LOC: RAD 12:30
PROVIDERS: ATTEND Neurological Surgery
DX: M54.16 Radiculopathy, lumbar region (principal); M51.36 Other intervertebral disc degeneration, lumbar region; S32.030S Wedge compression fracture of third lumbar vertebra, sequela; Z98.890 Other specified postprocedural states

== ENCOUNTER 2020-01-26 11:49 | Emergency (ER) | payer MEDICARE, BC ==
--- NOTE | 2020-01-26 12:38 | ED.PDOC ---
History of Present Illness - General Chief Complaint: Trauma Stated Complaint: back pain Time Seen by Provider: 01/26/20 12:25 Source: patient, RN notes reviewed, Vital Signs reviewed, family - Exam Limitations: no limitations - History of Present Illness Initial Comments: Patient is a 69-year-old white male who presents with complaints of low back pain. Patient fell approximately 7 to 8 days ago and has had worsening back pain since that time. The pain is sharp and stabbing in nature. It is moderate in intensity. Patient has a history of low back surgery with implanted screws and pins and is concerned that he has dislodged those surgical devices. Pain is worse with movement or bending over. Nothing seems to improve the pain. Patient is on morphine, 60 mg/day for chronic pain. Timing/Duration: 1 week Severity: moderate Improving Factors: immobilization Worsening Factors: movement Associated Symptoms: denies symptoms Allergies/Adverse Reactions: Allergies Atorvastatin [From Lipitor] Allergy (Verified 02/23/18 09:22) Penicillins Allergy (Verified 02/23/18 09:22) Home Medications: Ambulatory Orders Clonazepam 2 mg PO DAILY 10/11/14 Fenofibric Acid [Trilipix] 135 mg PO DAILY 10/11/14 Oxcarbazepine 600 mg PO BID 10/11/14 Quinapril HCl 40 mg PO DAILY 10/11/14 Morphine Sulfate [Ms Contin] 60 mg PO DAILY 11/01/15 Carbidopa-Levodopa [Carbidopa/Levodopa ER] 1 tab PO BID 06/26/18 Duloxetine HCl 60 mg PO BID 06/26/18 Nabumetone 750 mg PO BID 06/26/18 Topiramate [Topamax] 200 mg PO DAILY 06/26/18 Allopurinol 300 mg PO DAILY 02/27/19 Pantoprazole Sodium 40 mg PO DAILY 02/27/19 HYDROcodone 10MG/APAP 325MG [[place] 10/325] 1 tab PO BID 01/26/20 Review of Systems - Review of Systems Constitutional: States: no symptoms reported, see HPI. Denies: chills, fever, weakness EENTM: States: no symptoms reported. Denies: blurred vision, double vision Respiratory: States: no symptoms reported. Denies: cough, short of breath, wheezing Cardiology: States: no symptoms reported. Denies: chest pain, palpitations, syncope Gastrointestinal/Abdominal: States: no symptoms reported. Denies: abdominal pain, diarrhea, nausea, vomiting Genitourinary: States: no symptoms reported. Denies: discharge, dysuria, frequency Musculoskeletal: States: back pain. Denies: neck pain Skin: States: no symptoms reported. Denies: change in color, dryness, rash Neurological: States: no symptoms reported. Denies: headache, numbness, tingling, weakness Endocrine: States: no symptoms reported Hematologic/Lymphatic: States: no symptoms reported All other Systems: Reviewed and Negative Past Medical History (General) - Patient Medical History Hx Stroke: Yes - 20 years ago Hx Cardiac Disorders: - hx scarlet fever Hx Congestive Heart Failure: No Hx Hypertension: Yes Hx Diabetes: No Hx Gastroesophageal Reflux: Yes Hx MRSA: No - Vaccination History Hx Tetanus, Diphtheria Vaccination: No Hx Influenza Vaccination: Yes Hx Pneumococcal Vaccination: Yes - Social History Hx Tobacco Use: Yes Hx Chewing Tobacco Use: Yes Hx Alcohol Use: No Hx Substance Use: No Hx Substance Use Treatment: No Hx Depression: No Family Medical History - Family History Father Living Status: Age at (years of age): 89 Cause of : [place] Hx Family Hypertension: Yes Hx Family Cancer: Yes - skin Physical Exam - Physical Exam General Appearance: Alert, Anxious, Obvious distress, Well Developed, Well Groomed, Well Hydrated, Well Nourished Eye Exam: bilateral normal Ears, Nose, Throat: hearing grossly normal, normal pharynx Neck: non-tender, full range of motion, supple Respiratory: chest non-tender, lungs clear, normal breath sounds Cardiovascular/Chest: normal peripheral pulses, regular rate, rhythm, no edema, no gallop, no murmur Peripheral Pulses: radial,right: 2+, radial,left: 2+ Gastrointestinal/Abdominal: normal bowel sounds, non tender, soft Back Exam: decreased range of motion, muscle spasm Extremity: normal range of motion, non-tender, normal inspection Neurologic: child and adolescent psychologist II-XII nml as tested, no motor/sensory deficits, alert, normal mood/affect, oriented x 3 Skin Exam: normal color, warm/dry Lymphatic: no adenopathy Progress - Progress Progress: Differential diagnosis: Hardware failure, lumbar spine fracture, lumbar muscle sprain, sciatica among others. 01/26/20 14:34 Patient with a compression fracture of T12, will plan on CT of the lumbar spine now to rule out retropulsed fragments and then probable discharge home. 01/26/20 16:26 CT scan of the lumbar spine shows that the patient actually has a lumbar fracture of L1 that is only 10 to 20% compression with no retropulsed fragments. The x-ray was misinterpreted in comparison of the CT as the CT shows that there are 6 lumbar vertebrae. Therefore this is an improved outlook for the patient. We will still discharge home with follow-up with his orthopedic surgeon in the next few days. I discussed this plan of care with the patient and his and they voiced understanding and agreement. Sridhar Ochoa M.D. #[id number] - Results/Orders Results/Orders: EXAM DESCRIPTION: Lumbar Spine 3 Views CLINICAL HISTORY: 69 years Male, fall with low back pain COMPARISON: Radiographs of the lumbar spine dated 01/03/2020 FINDINGS: Posterior spinal fixation hardware is noted traversing L2 and L4 vertebral bodies. Changes of kyphoplasty of L3 vertebral body. Interval development of superior endplate compression of T12 vertebral body with 40% loss of height. Multilevel degenerative disc disease and facet arthropathy. No evidence of spondylolysis or spondylolisthesis. The visualized prevertebral and paravertebral soft tissues appear grossly unremarkable. IMPRESSION: Interval development of superior endplate compression of T12 vertebral body with 40% loss of height. Electronically signed by: Chelsi Slaughter MD 01/26/2020 1:44 PM EXAM DESCRIPTION: CT lumbar spine without contrast CLINICAL HISTORY: 69 years, Male, low back pain with a new T12 compression frx. COMPARISON: Previous CT of the lumbar spine November 09, 2019 TECHNIQUE: Lumbar CT with thin-section axial imaging with reconstructed MPR images reviewed as well. FINDINGS: Sagittal reformatted images show compressed vertebral body for. Six lumbar type vertebral bodies have been previously numbered such that the lowest lumbar type vertebral body is considered transitional S1. The compressed vertebral body has been previously labeled L4. Orthopedic hardware is present posteriorly with stabilization rods and pedicle screws at L3 and L5 levels. Fragmented L4 vertebral body with methacrylate appears similar to previous. No movement of the various fragments or change of configuration since previous. Retropulsed posterior superior upper margin of the vertebral body narrows the AP diameter the spinal canal without change compared to previous. Upper posterior L4 retropulsion measures 5.5 mm unchanged. Rarefaction around the pedicle screw on the left at L3 is unchanged consistent with loosening rather than infection. No abnormal rarefaction around the other pedicle screws. Upper sacrum appears intact. Degenerative narrowing of the SI joints. Partial compression at L1 with anterior buckling of the cortex. This is evidently acute imaging from the appearance on the axial images (axial images 26 through 30, series 2). This area was not included on the previous study. Approximately 10-20% loss of height anteriorly. Sclerotic trabecular line parallels the depressed superior endplate. Buckled anterior cortex at L1. Axial images were obtained to the disc spaces. L5-S1: Spinal stenosis of moderate severity due to diffuse posterior annular bulge, facet hypertrophic spurring and ligamentum flavum thickening. Severe narrowing of subarticular and lateral recesses compressing descending S1 nerve roots. Moderately severe right neural foraminal narrowing. No change at this level compared to previous study. L4-L5: Severe spinal stenosis related to diffuse posterior annular bulge and calcified thickened ligamentum flavum and facet hypertrophic spurring. Spinal canal is narrowed to 0.6 x 1 cm. Severe narrowing of subarticular and lateral recesses compressing the descending L5 nerve roots. Moderately severe bilateral neural foraminal narrowing. This same high-grade stenotic appearance was seen on the previous study. L3-4: Behind upper L4, retropulsed posterior margin of the vertebral body causes severe spinal stenosis with AP diameter the spinal canal narrowed to 4 mm. Fused facets with thickened ligamentum flavum and calcified spurring obliterates the posterior aspect of the canal. Severe bilateral subarticular recess and upper right lateral recess narrowing compressing descending right more than left L4 nerve roots. Moderate bilateral neural foraminal narrowing related to bulging disc material. Same appearance on the previous study. L2-3 and L1-2 levels are unremarkable. IMPRESSION: Acute L1 compression fracture with 10-20% loss of height and no spinal canal compromise. Multilevel high-grade spinal stenosis unchanged from previous study. Stable compression fracture at L4 with orthopedic hardware in the lower lumbar spine. Degenerated L5-S1 disc with vacuum disc phenomenon. This exam was performed according to our departmental dose-optimization program, which includes automated exposure control, adjustment of the mA and/or kV according to patient size and/or use of iterative reconstruction technique. Electronically signed by: Pj Palomares MD 01/26/2020 3:32 Departure - Departure Clinical Impression: Closed compression fracture of L1 vertebra Qualifiers: Encounter type: initial encounter Qualified Code(s): S32.010A - Wedge compression fracture of first lumbar vertebra, initial encounter for closed fracture Fall Qualifiers: Encounter type: initial encounter Qualified Code(s): W19.XXXA - Unspecified fall, initial encounter Time of Disposition: 16:28 Disposition: Discharge to Home or Self Care Condition: Good Departure Forms: ED Discharge - Pt. Copy, Patient Portal Self Enrollment Instructions: DI for Trauma, Vertebral Compression Fracture (DC) Diet: resume usual diet Activity: ambulate only with walker, no lifting, walking as tolerated, no pushing/pulling with affected limb Referrals: GEORGE CERVANTES MD [Primary Care Provider] - 1-2 Days Home Medications: Ambulatory Orders Clonazepam 2 mg PO DAILY 10/11/14 Fenofibric Acid [Trilipix] 135 mg PO DAILY 10/11/14 Oxcarbazepine 600 mg PO BID 10/11/14 Quinapril HCl 40 mg PO DAILY 10/11/14 Morphine Sulfate [Ms Contin] 60 mg PO DAILY 11/01/15 Carbidopa-Levodopa [Carbidopa/Levodopa ER] 1 tab PO BID 06/26/18 Duloxetine HCl 60 mg PO BID 06/26/18 Nabumetone 750 mg PO BID 06/26/18 Topiramate [Topamax] 200 mg PO DAILY 06/26/18 Allopurinol 300 mg PO DAILY 02/27/19 Pantoprazole Sodium 40 mg PO DAILY 02/27/19 HYDROcodone 10MG/APAP 325MG [[place] 10/325] 1 tab PO BID 01/26/20
[2020-01-26 13:06] VITALS: TEMP 97.1
--- NOTE | 2020-01-26 13:46 | RAD ---
EXAM DESCRIPTION: Lumbar Spine 3 Views CLINICAL HISTORY: 69 years Male, fall with low back pain COMPARISON: Radiographs of the lumbar spine dated 01/03/2020 FINDINGS: Posterior spinal fixation hardware is noted traversing L2 and L4 vertebral bodies. Changes of kyphoplasty of L3 vertebral body. Interval development of superior endplate compression of T12 vertebral body with 40% loss of height. Multilevel degenerative disc disease and facet arthropathy. No evidence of spondylolysis or spondylolisthesis. The visualized prevertebral and paravertebral soft tissues appear grossly unremarkable. IMPRESSION: Interval development of superior endplate compression of T12 vertebral body with 40% loss of height. Electronically signed by: Chelsi Slaughter MD 01/26/2020 1:44 PM CDT
--- NOTE | 2020-01-26 15:34 | CT ---
EXAM DESCRIPTION: CT lumbar spine without contrast CLINICAL HISTORY: 69 years, Male, low back pain with a new T12 compression frx. COMPARISON: Previous CT of the lumbar spine November 09, 2019 TECHNIQUE: Lumbar CT with thin-section axial imaging with reconstructed MPR images reviewed as well. FINDINGS: Sagittal reformatted images show compressed vertebral body for. Six lumbar type vertebral bodies have been previously numbered such that the lowest lumbar type vertebral body is considered transitional S1. The compressed vertebral body has been previously labeled L4. Orthopedic hardware is present posteriorly with stabilization rods and pedicle screws at L3 and L5 levels. Fragmented L4 vertebral body with methacrylate appears similar to previous. No movement of the various fragments or change of configuration since previous. Retropulsed posterior superior upper margin of the vertebral body narrows the AP diameter the spinal canal without change compared to previous. Upper posterior L4 retropulsion measures 5.5 mm unchanged. Rarefaction around the pedicle screw on the left at L3 is unchanged consistent with loosening rather than infection. No abnormal rarefaction around the other pedicle screws. Upper sacrum appears intact. Degenerative narrowing of the SI joints. Partial compression at L1 with anterior buckling of the cortex. This is evidently acute imaging from the appearance on the axial images (axial images 26 through 30, series 2). This area was not included on the previous study. Approximately 10-20% loss of height anteriorly. Sclerotic trabecular line parallels the depressed superior endplate. Buckled anterior cortex at L1. Axial images were obtained to the disc spaces. L5-S1: Spinal stenosis of moderate severity due to diffuse posterior annular bulge, facet hypertrophic spurring and ligamentum flavum thickening. Severe narrowing of subarticular and lateral recesses compressing descending S1 nerve roots. Moderately severe right neural foraminal narrowing. No change at this level compared to previous study. L4-L5: Severe spinal stenosis related to diffuse posterior annular bulge and calcified thickened ligamentum flavum and facet hypertrophic spurring. Spinal canal is narrowed to 0.6 x 1 cm. Severe narrowing of subarticular and lateral recesses compressing the descending L5 nerve roots. Moderately severe bilateral neural foraminal narrowing. This same high-grade stenotic appearance was seen on the previous study. L3-4: Behind upper L4, retropulsed posterior margin of the vertebral body causes severe spinal stenosis with AP diameter the spinal canal narrowed to 4 mm. Fused facets with thickened ligamentum flavum and calcified spurring obliterates the posterior aspect of the canal. Severe bilateral subarticular recess and upper right lateral recess narrowing compressing descending right more than left L4 nerve roots. Moderate bilateral neural foraminal narrowing related to bulging disc material. Same appearance on the previous study. L2-3 and L1-2 levels are unremarkable. IMPRESSION: Acute L1 compression fracture with 10-20% loss of height and no spinal canal compromise. Multilevel high-grade spinal stenosis unchanged from previous study. Stable compression fracture at L4 with orthopedic hardware in the lower lumbar spine. Degenerated L5-S1 disc with vacuum disc phenomenon. This exam was performed according to our departmental dose-optimization program, which includes automated exposure control, adjustment of the mA and/or kV according to patient size and/or use of iterative reconstruction technique. Electronically signed by: Pj Palomares MD 01/26/2020 3:32 PM CDT
[2020-01-26 16:47] VITALS: BP 141/86; O2SAT 98
== END 2020-01-26 16:45 | disposition home or self-care (01) ==
LOC: ER 11:49
DX: S32.010A Wedge compression fracture of first lumbar vertebra, initial encounter for closed fracture (principal); M51.37 Other intervertebral disc degeneration, lumbosacral region; M48.07 Spinal stenosis, lumbosacral region; I10 Essential (primary) hypertension; K21.9 Gastro-esophageal reflux disease without esophagitis; Z98.890 Other specified postprocedural states; Z88.8 Allergy status to other drugs, medicaments and biological substances; Z88.0 Allergy status to penicillin; Z79.899 Other long term (current) drug therapy; Z86.73 Personal history of transient ischemic attack (TIA), and cerebral infarction without residual deficits; Z87.891 Personal history of nicotine dependence; W01.0XXA Fall on same level from slipping, tripping and stumbling without subsequent striking against object, initial encounter; Y92.9 Unspecified place or not applicable

== ENCOUNTER → 2020-05-08 | Outpatient (CLI) | payer MEDICARE, BC ==
--- NOTE | 2020-05-08 11:57 | MRI ---
EXAM DESCRIPTION: Lumbar Spine w/o Contrast CLINICAL HISTORY: UNSPEC FRACTURE OF UNSPEC LUMBAR VERTEBRA, INITIAL ENCOUNTER COMPARISON: CT lumbar spine 01/26/2020 TECHNIQUE: MRI of the lumbar spine is performed according to our usual protocol with axial and sagittal multi sequence imaging. FINDINGS: The designated L5-S1 disc space is on axial T2 image 3. Transitional lumbosacral anatomy. Rudimentary S1-S2 disc. This is consistent with the nomenclature on the prior CT. Subacute compression fracture in the L1 vertebral body with 30% loss of stature. Mild associated marrow edema along the fracture line again demonstrated. 2 mm bony retropulsion with no significant spinal canal stenosis. Susceptibility artifact from posterior fusion hardware from L3 through L5. Chronic compression fracture at L4 which is post augmentation. Significant bony retropulsion of 6 mm with severe spinal canal stenosis along the superior endplate of L4. Residual AP diameter of the thecal sac is 5 mm. The conus medullaris terminates normally. L1-2: Disc desiccation with mild disc narrowing. Mild facet hypertrophy. No stenosis. L2-3: Disc desiccation with mild disc narrowing. Moderate facet hypertrophy. No stenosis. L3-4: Disc desiccation with moderate disc narrowing. Moderate facet hypertrophy with ligamentum flavum thickening. Posterior disc bulge and retropulsed superior endplate of L4 with multifactorial severe spinal canal stenosis. Residual AP diameter of the thecal sac is 5 mm. Moderate bilateral neural foraminal stenosis. L4-5: Disc desiccation with moderate disc narrowing. Moderate facet hypertrophy with ligamentum flavum thickening. 2.5 mm disc bulge and osteophytic ridging of the endplates. Moderate to severe spinal canal stenosis and moderate bilateral neural foraminal stenosis. Residual AP diameter of the thecal sac is 6.5 mm. L5-S1: Disc desiccation with severe disc narrowing. Severe facet hypertrophy with ligamentum flavum thickening. 4 mm disc bulge and osteophytic ridging of the endplates. Moderate to severe bilateral neural foraminal stenosis. Moderate bilateral lateral recess narrowing. Mild to moderate spinal canal stenosis. S1-S2: Transitional anatomy with rudimentary disc. No stenosis. IMPRESSION: 1. Transitional lumbosacral anatomy as detailed above. For the purposes of this report, the S1 vertebral body is considered transitional and is partially lumbarized with a somewhat well-formed S1-S2 disc. 2. Subacute compression fracture at L1 with 30% loss of stature. 3. Posterior fusion hardware from L3 through L5 with chronic fracture at L4. 4. Multilevel lumbar disc degeneration and facet degenerative changes. At L3-L4, there is severe spinal canal stenosis and moderate bilateral neural foraminal stenosis. 5. Other findings as above. Electronically signed by: Renard Bojorquez MD 05/08/2020 11:55 AM CDT
== END ==
LOC: MRI 10:50
PROVIDERS: ATTEND Neurological Surgery
DX: S32.010D Wedge compression fracture of first lumbar vertebra, subsequent encounter for fracture with routine healing (principal); M51.36 Other intervertebral disc degeneration, lumbar region; M48.061 Spinal stenosis, lumbar region without neurogenic claudication; Z98.1 Arthrodesis status

== ENCOUNTER → 2020-07-12 | Outpatient (CLI) | payer MEDICARE, BC | LOC: GMAE 14:42 | PROVIDERS: ATTEND Family Medicine | DX: Z12.5 Encounter for screening for malignant neoplasm of prostate (principal); I10 Essential (primary) hypertension; M10.9 Gout, unspecified; R94.6 Abnormal results of thyroid function studies; E78.2 Mixed hyperlipidemia | CPT/HCPCS: 84439; 84443; 84550; G0103 ==